=== PATIENT | female | born 1980 | race Two or more races ===

== ENCOUNTER 2018-11-15 10:10 | Emergency (ER) | payer OTHER ==
[~2018-11-15] VITALS: Ht 157.5 cm; Wt 97.5 kg
[2018-11-15 10:32] VITALS: BP 129/54
[2018-11-15] MEDS ORDERED: HYDROcodone-ACET 5/325MG TAB PO ONE (11:00)
== END 2018-11-15 11:45 | disposition home or self-care (01) ==
LOC: ER 10:10
DX: M25.552 Pain in left hip (principal); E78.00 Pure hypercholesterolemia, unspecified; W11.XXXA Fall on and from ladder, initial encounter; Y93.89 Activity, other specified; Y92.89 Other specified places as the place of occurrence of the external cause; Y99.8 Other external cause status
CPT/HCPCS: 72100; 73502